=== PATIENT | male | born 1975 | race Caucasian/White ===

== ENCOUNTER 2021-07-08 13:15 | Inpatient (IN) | payer BC ==
[2021-07-08] MEDS ORDERED: IPRATROPIUM-ALBUTEROL 3 ML NEB INHALATION STA (13:27)
[2021-07-08] MEDS ORDERED: NITROGLYCERIN OINT 1 INCH/GM PACKET TOPICAL STA (13:27)
[2021-07-08] MEDS ORDERED: ASPIRIN 81 MG PO STA (13:34)
--- NOTE | 2021-07-08 13:40 | ED ---
SOB HPI - General Chief Complaint: Shortness of Breath Stated Complaint: Chest Pain Time Seen by Provider: 07/08/21 13:22 Source: patient Mode of arrival: ambulatory Limitations: no limitations - History of Present Illness Initial Comments: This 46-year-old male presents with a complaint of shortness of breath. This has been present for 3 days. The relates worsening with exertion. He states that he had some diffuse chest pain described as a pressure 2 days ago but none since. He denies any leg pain or swelling. He denies any previous similar ty pes of incidents. He denies any history of tobacco abuse, asthma, COPD, or emphysema. He denies any history of DVT or PE. He also denies any known cardiac disease previously. He has had a slight cough with phlegm-like production. There has been no fevers or chills. No other complaints or modif daja factors. He was sent over from his primary care office as a found his pulse ox to be 88%. - Related Data Home Medications Medication Instructions Recorded Confirmed Aspirin EC [Ecotrin] 650 mg PO QID PRN 07/08/21 07/08/21 Atenolol [Tenormin] 100 mg PO DAILY 07/08/21 07/08/21 Lisinopril [Prinivil] 10 mg PO DAILY 07/08/21 07/08/21 Allergies Allergy/AdvReac Type Severity Reaction Status Date / Time No Known Allergies Allergy Verified 07/08/21 15:20 Review of Systems ROS Statement: Those systems with pertinent positive or pertinent negative responses have been documented in the HPI. ROS Other: All systems not noted in ROS Statement are negative. Past Medical History Past Medical History: Hypertension History of Any Multi-Drug Resistant Organisms: None Reported Past Surgical History: No Surgical Hx Reported Smoking Status: Never smoker Past Alcohol Use History: None Reported Past Drug Use History: None Reported General Exam - General Exam Comments Initial Comments: GENERAL: The patient is well nourished and well hydrated. VITAL SIGNS: Heart rate, blood pressure, respiratory rate reviewed as recorded in nurse's notes. EYES: Pupils are round and reactive. Extraocular movements are intact. No conjunctival / lid redness or swelling. ENT: No external evidence of injury, swelling, or ecchymosis. Airway is patent. Throat is clear. NECK: Nontender. No swelling or evidence of injury. No subcutaneous emphysema. Trachea is midline. No thyroid mass. HEART: Regular rate and rhythm. Good peripheral pulses. LUNGS/CHEST: Breath sounds clear and equal bilaterally. No rales, rhonchi, or wheezes. No ecchymosis, subcutaneous emphysema, or tenderness. ABDOMEN: Abdomen soft without tenderness. No palpable masses or organomegaly. No peritoneal signs. No abdominal wall swelling or ecchymosis. EXTREMITIES: No extremity tenderness. Normal muscle tone and function. No thoracolumbar tenderness. NEUROLOGIC: Sensation is grossly intact. Cranial nerve exam reveals face is symmetrical, tongue is midline, speech is clear. SKIN: No abrasions or ecchymosis is noted. No induration or masses noted. PSYCHIATRIC: Alert and oriented. Appropriate behavior and judgment. Limitations: no limitations Course Vital Signs 07/08/21 07/08/21 07/08/21 13:17 13:23 13:30 Temperature 98.4 F Pulse Rate 77 71 Respiratory 20 19 Rate Blood Pressure 121/86 121/86 O2 Sat by Pulse 95 94 L Oximetry 07/08/21 07/08/21 07/08/21 13:50 14:00 14:02 Temperature Pulse Rate 75 82 84 Respiratory 19 Rate Blood Pressure 121/86 O2 Sat by Pulse 97 Oximetry 07/08/21 07/08/21 07/08/21 14:30 15:00 15:30 Temperature Pulse Rate 81 79 75 Respiratory 11 L 26 H 23 Rate Blood Pressure 120/92 132/103 116/89 O2 Sat by Pulse 94 L 94 L 95 Oximetry 07/08/21 16:00 Temperature Pulse Rate 79 Respiratory 16 Rate Blood Pressure 118/96 O2 Sat by Pulse 93 L Oximetry Medical Decision Making - Medical Decision Making The patient was seen and examined. All diagnostics were reviewed. The EKG shows a normal sinus rhythm at a rate of 74. There is multiple T-wave inversions through the precordial leads as well as 3 and aVF. There is no evidence of ST elevation. The ID intervals 138, QRS duration is 90, and the QTC intervals 497. He is given aspirin as well as Nitropaste. A DuoNeb breathing treatment is also given. Laboratory shows evidence of a decreased CO2. He also has elevation of his d-dimer and troponin. The patient had a CTA of his thorax and case is discussed with the radiologist shortly after completion and he does note a significant clot burden bilaterally consistent with pulmonary embolism. He notes that the clot burden is extensive and there is evidence of right ventricular strain. The case is discussed with Dr. Obregon from pulmonology and he recommends vascular surgery consultation for possible ECOS. Case is discussed with Dr. Camargo from vascular surgery and he will take patient to the heart catheterization lab for this procedure in the near future. The patient does note some slight improvement with the DuoNeb breathing treatment. Heparin is initiated as well. Pulmonology does evaluate patient in the emergency department. Case also was discussed with Dr. Sun from internal medicine who is agreeable with admission. Patient will be admitted to the intensive care unit. 40 minutes of critical care time is utilized and the treatment of the patient. l - Lab Data Result diagrams: 07/08/21 13:39 07/08/21 13:39 Lab Results 07/08/21 07/08/21 07/08/21 Range/Units 13:39 13:39 13:39 WBC 13.0 H (3.8-10.6) k/uL RBC 5.47 (4.30-5.90) m/uL Hgb 16.3 (13.0-17.5) gm/dL Hct 48.4 (39.0-53.0) % MCV 88.4 (80.0-100.0) fL MCH 29.7 (25.0-35.0) pg MCHC 33.7 (31.0-37.0) g/dL RDW 14.1 (11.5-15.5) % Plt Count 183 (150-450) k/uL MPV 7.8 Neutrophils % 74 % Lymphocytes % 17 % Monocytes % 6 % Eosinophils % 2 % Basophils % 1 % Neutrophils # 9.6 H (1.3-7.7) k/uL Lymphocytes # 2.2 (1.0-4.8) k/uL Monocytes # 0.8 (0-1.0) k/uL Eosinophils # 0.2 (0-0.7) k/uL Basophils # 0.1 (0-0.2) k/uL PT 10.8 (9.0-12.0) sec INR 1.0 (<1.2) APTT 23.5 (22.0-30.0) sec D-Dimer 7.28 H (<0.60) mg/L FEU Sodium 139 (137-145) mmol/L Potassium 4.9 (3.5-5.1) mmol/L Chloride 112 H (98-107) mmol/L Carbon Dioxide 16 L (22-30) mmol/L Anion Gap 11 mmol/L BUN 28 H (9-20) mg/dL Creatinine 0.94 (0.66-1.25) mg/dL Est GFR (CKD-EPI)AfAm >90 (>60 ml/min/1.73 sqM) Est GFR (CKD-EPI)NonAf >90 (>60 ml/min/1.73 sqM) Glucose 132 H (74-99) mg/dL Plasma Lactic Acid Riky (0.7-2.0) mmol/L Calcium 9.8 (8.4-10.2) mg/dL Magnesium 2.1 (1.6-2.3) mg/dL Total Bilirubin 0.6 (0.2-1.3) mg/dL AST 33 (17-59) U/L ALT 33 (4-49) U/L Alkaline Phosphatase 102 (38-126) U/L Troponin I (0.000-0.034) ng/mL NT-Pro-B Natriuret Pep pg/mL Total Protein 7.8 (6.3-8.2) g/dL Albumin 4.3 (3.5-5.0) g/dL Coronavirus (PCR) (Not Detectd) 07/08/21 07/08/21 07/08/21 Range/Units 13:39 13:39 13:39 WBC (3.8-10.6) k/uL RBC (4.30-5.90) m/uL Hgb (13.0-17.5) gm/dL Hct (39.0-53.0) % MCV (80.0-100.0) fL MCH (25.0-35.0) pg MCHC (31.0-37.0) g/dL RDW (11.5-15.5) % Plt Count (150-450) k/uL MPV Neutrophils % % Lymphocytes % % Monocytes % % Eosinophils % % Basophils % % Neutrophils # (1.3-7.7) k/uL Lymphocytes # (1.0-4.8) k/uL Monocytes # (0-1.0) k/uL Eosinophils # (0-0.7) k/uL Basophils # (0-0.2) k/uL PT (9.0-12.0) sec INR (<1.2) APTT (22.0-30.0) sec D-Dimer (<0.60) mg/L FEU Sodium (137-145) mmol/L Potassium (3.5-5.1) mmol/L Chloride (98-107) mmol/L Carbon Dioxide (22-30) mmol/L Anion Gap mmol/L BUN (9-20) mg/dL Creatinine (0.66-1.25) mg/dL Est GFR (CKD-EPI)AfAm (>60 ml/min/1.73 sqM) Est GFR (CKD-EPI)NonAf (>60 ml/min/1.73 sqM) Glucose (74-99) mg/dL Plasma Lactic Acid Riky 1.2 (0.7-2.0) mmol/L Calcium (8.4-10.2) mg/dL Magnesium (1.6-2.3) mg/dL Total Bilirubin (0.2-1.3) mg/dL AST (17-59) U/L ALT (4-49) U/L Alkaline Phosphatase (38-126) U/L Troponin I 0.054 H* (0.000-0.034) ng/mL NT-Pro-B Natriuret Pep 3960 pg/mL Total Protein (6.3-8.2) g/dL Albumin (3.5-5.0) g/dL Coronavirus (PCR) (Not Detectd) 07/08/21 Range/Units 13:39 WBC (3.8-10.6) k/uL RBC (4.30-5.90) m/uL Hgb (13.0-17.5) gm/dL Hct (39.0-53.0) % MCV (80.0-100.0) fL MCH (25.0-35.0) pg MCHC (31.0-37.0) g/dL RDW (11.5-15.5) % Plt Count (150-450) k/uL MPV Neutrophils % % Lymphocytes % % Monocytes % % Eosinophils % % Basophils % % Neutrophils # (1.3-7.7) k/uL Lymphocytes # (1.0-4.8) k/uL Monocytes # (0-1.0) k/uL Eosinophils # (0-0.7) k/uL Basophils # (0-0.2) k/uL PT (9.0-12.0) sec INR (<1.2) APTT (22.0-30.0) sec D-Dimer (<0.60) mg/L FEU Sodium (137-145) mmol/L Potassium (3.5-5.1) mmol/L Chloride (98-107) mmol/L Carbon Dioxide (22-30) mmol/L Anion Gap mmol/L BUN (9-20) mg/dL Creatinine (0.66-1.25) mg/dL Est GFR (CKD-EPI)AfAm (>60 ml/min/1.73 sqM) Est GFR (CKD-EPI)NonAf (>60 ml/min/1.73 sqM) Glucose (74-99) mg/dL Plasma Lactic Acid Riky (0.7-2.0) mmol/L Calcium (8.4-10.2) mg/dL Magnesium (1.6-2.3) mg/dL Total Bilirubin (0.2-1.3) mg/dL AST (17-59) U/L ALT (4-49) U/L Alkaline Phosphatase (38-126) U/L Troponin I (0.000-0.034) ng/mL NT-Pro-B Natriuret Pep pg/mL Total Protein (6.3-8.2) g/dL Albumin (3.5-5.0) g/dL Coronavirus (PCR) Not Detected (Not Detectd) Disposition Clinical Impression: Dyspnea on exertion, Acute respiratory failure, Acute electrocardiogram martinez es, Chest pain, Acute massive pulmonary embolism, Hypoxia Disposition: ADMITTED IP TO THIS HOSP Condition: Fair Is patient prescribed a controlled substance at d/c from ED?: No Time of Disposition: 15:30 Decision Date: 07/08/21 Decision Time: 15:30
[2021-07-08 13:52] LABS: Basophils # (A) 0.1 k/uL (0-0.2); Basophils % (A) 1 %; Eosinophils # (A) 0.2 k/uL (0-0.7); Eosinophils % (A) 2 %; HCT 48.4 % (39.0-53.0); HGB 16.3 gm/dL (13.0-17.5); Lymphocytes # (A) 2.2 k/uL (1.0-4.8); Lymphocytes % (A) 17 %; MCH 29.7 pg (25.0-35.0); MCHC 33.7 g/dL (31.0-37.0); MCV 88.4 fL (80.0-100.0); Mean Platelet Volume 7.8; Monocytes # (A) 0.8 k/uL (0-1.0); Monocytes % (A) 6 %; Neutrophils # (A) 9.6 k/uL (1.3-7.7); Neutrophils % (A) 74 %; Platelet Count 183 k/uL (150-450); RBC 5.47 m/uL (4.30-5.90); RDW 14.1 % (11.5-15.5)
[2021-07-08 14:08] LABS: ALT 33 U/L (4-49); AST 33 U/L (17-59); African American GFR (CKD) >90 (>60 ml/min/1.73 sqM); Albumin 4.3 g/dL (3.5-5.0); Alkaline Phosphatase 102 U/L (38-126); Anion Gap 11 mmol/L; Blood Urea Nitrogen 28 mg/dL (9-20); Calcium 9.8 mg/dL (8.4-10.2); Carbon Dioxide 16 mmol/L (22-30); Chloride 112 mmol/L (98-107); Glucose 132 mg/dL (74-99); Magnesium 2.1 mg/dL (1.6-2.3); Non-African American GFR(CKD) >90 (>60 ml/min/1.73 sqM); Potassium 4.9 mmol/L (3.5-5.1); Sodium 139 mmol/L (137-145); Total Bilirubin 0.6 mg/dL (0.2-1.3); Total Protein 7.8 g/dL (6.3-8.2)
[2021-07-08 14:16] LABS: Partial Thromboplastin Time 23.5 sec (22.0-30.0); Prothrombin Time 10.8 sec (9.0-12.0)
--- NOTE | 2021-07-08 14:31 | XR ---
EXAMINATION TYPE: XR chest 2V DATE OF EXAM: 07/08/2021 COMPARISON: NONE TECHNIQUE: PA and lateral views submitted. HISTORY: Difficulty breathing FINDINGS: The lungs are clear and there is no pneumothorax, pleural effusion, or focal pneumonia. Arthropathy of the shoulders. Heart size normal. Chronic rib deformities are seen and there is hypertrophic and degenerative change of the spine. IMPRESSION: 1. No acute process.
[2021-07-08] MEDS ORDERED: HEPARIN SODIUM 1,000 UN/ML (10ML VL) IV PRN (14:51)
[2021-07-08] MEDS ORDERED: HEPARIN SODIUM 1,000 UN/ML (10ML VL) IV ONE (14:51)
--- NOTE | 2021-07-08 14:55 | CT ---
EXAMINATION TYPE: CT angio chest DATE OF EXAM: 07/08/2021 2:43 PM COMPARISON: None HISTORY: PE suspected, intermediate probability, positive d-dimer CT DLP: 672.9 mGycm Automated exposure control for dose reduction was used. CONTRAST: CTA scan of the thorax is performed with IV Contrast, patient injected with 100 mL of Isovue 370, pul monary embolism protocol. . FINDINGS: LUNGS: Vague groundglass changes in the left upper lobe are incidentally noted. Could been the basis of a pneumonitis or possibly developing pulmonary infarction. No sizable pleural effusion or pneumoth orax. MEDIASTINUM: There large burden acute pulmonary embolism involving the main right and left pulmonary arteries extending into the secondary and distal branches compatible with a large burden PE. The righ t ventricular 2 left ventricular ratio is greater than 1 compatible right ventricular strain. Case di scussed by telephone at 2:46 PM with the ER physician 07/08/2021. OTHER: Hypertrophic and degenerative change of the spine IMPRESSION: 1. Large burden acute bilateral pulmonary embolism involving the right and left mainstem branches ext ending into the secondary and distal branches. Correlate for right ventricular strain. 2. Small focal groundglass area in the left upper lobe medially superior segment may represent an are a of pneumonitis or developing pulmonary infarction.
[2021-07-08] MEDS: HEPARIN SOD,PORK IN 0.45% NACL 25,000 UNIT in 0.45% NACL 1 250ML.BAG IV SCH (15:10)
[2021-07-08] MEDS ORDERED: IOPAMIDOL-370 50ML BTL INJ ONE (15:30)
[2021-07-08] MEDS ORDERED: NALOXONE 0.4 MG/ML 1 ML VIAL IV PRN (15:31)
[2021-07-08] MEDS ORDERED: MORPHINE SULFATE 2 MG/ML SYRINGE IV PRN (15:31)
[2021-07-08] MEDS ORDERED: IPRATROPIUM-ALBUTEROL 3 ML NEB INHALATION PRN (15:31)
[2021-07-08] MEDS ORDERED: ACETAMINOPHEN TAB 325 MG TAB PO PRN (15:31)
[2021-07-08] MEDS ORDERED: ASPIRIN 325 MG TAB PO PRN (15:35)
--- NOTE | 2021-07-08 15:48 | P.CNPUL ---
History of Present Illness Consult date: 07/08/21 Requesting physician: Jamar Loera Reason for consult: dyspnea, chest pain, abnormal CXR/CT Chief complaint: Shortness of breath, chest pain History of present illness: This is a very pleasant 46-year-old male patient who follows with Dr. Wooten as his primary care provider. He has a history of hypertension. Lifelong nonsmoker. No other significant medical problems. He had presented to his PCP today with complaints of chest discomfort and shortness of breath. He was found to have O2 saturation of 88% and was referred here to the emergency room. His symptoms started 4 days ago and progressively got worse that he sought treatment today. They work revealed use BC of 13.0. Hemoglobin 13.6. D-dimer 7.28. Sodium 139. Potassium 4.9. Bicarb 16. Creatinine 0.94. Troponin 0.054. ProBNP 3960. Sebastian virus not detected. Chest x-ray revealed no acute pulmonary process. CT angiogram revealed a large burden acute bilateral pulmonary embolism involving the right and left mainstem branches extending into the second and distal branches. Correlate for right ventricular strain. There is some small focal groundglass opacity in the left upper lobe medial represent an area of suspected pulmonary infarction. He is seen in the emergency room. He is currently sitting up on the stretcher. Awake and alert in no acute distress. Maintaining O2 saturations in the mid 90s on room air. He denies any lower extremity pain or edema. He's been hemodynamically stable. He's been initiated on a heparin drip. 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 Review of Systems REVIEW OF SYSTEMS: CONSTITUTIONAL: Denies any recent significant weight loss or weight gain. EYES: Denies change in vision. EARS, NOSE, MOUTH, THROAT: Denies headaches, denies sore throat. CARDIOVASCULAR: Positive for chest pain, no palpitations or syncopal episodes. RESPIRATORY: Positive for shortness of breath, no cough, congestion or hemoptysis. GASTROINTESTINAL: Denies change in appetite, denies abdominal pain GENITOURINARY: Denies hematuria, denies infections. MUSKULOSKELETAL: Denies pain, denies swelling. INTEGUMENTARY: Denies rash, denies eczema. NEUROLOGICAL: Denies recent memory loss, no recent seizure activity. PSYCHIATRIC: Denies anxiety, denies depression. HEMATOLOGIC/LYMPHATIC: Denies anemia, denies enlarged lymph nodes. Past Medical History Past Medical History: Hypertension History of Any Multi-Drug Resistant Organisms: None Reported Past Surgical History: No Surgical Hx Reported Smoking Status: Never smoker Past Alcohol Use History: None Reported Past Drug Use History: None Reported Medications and Allergies Home Medications Medication Instructions Recorded Confirmed Type Aspirin EC [Ecotrin] 650 mg PO QID PRN 07/08/21 07/08/21 History Atenolol [Tenormin] 100 mg PO DAILY 07/08/21 07/08/21 History Lisinopril [Prinivil] 10 mg PO DAILY 07/08/21 07/08/21 History Allergies Allergy/AdvReac Type Severity Reaction Status Date / Time No Known Allergies Allergy Verified 07/08/21 15:20 Physical Exam Vitals: Vital Signs Temp Pulse Resp BP Pulse Ox 07/08/21 14:02 84 07/08/21 13:50 75 07/08/21 13:23 77 20 121/86 95 07/08/21 13:17 98.4 F Intake and Output 07/08/21 07/08/21 07/08/21 06:59 14:59 22:59 Other: Weight 113.398 kg GENERAL EXAM: Alert, very pleasant 46-year-old gentleman, on 2 L nasal cannula, comfortable in no apparent distress. HEAD: Normocephalic. EYES: Normal reaction of pupils, equal size. NOSE: Clear with pink turbinates. THROAT: No erythema or exudates. NECK: No masses, no JVD. CHEST: No chest wall deformity. LUNGS: Equal air entry with no crackles, wheeze, rhonchi or dullness. CVS: S1 and S2 normal with no audible murmur, regular rhythm. ABDOMEN: No hepatosplenomegaly, normal bowel sounds, no guarding or rigidity. SPINE: No scoliosis or deformity SKIN: No rashes CENTRAL NERVOUS SYSTEM: No focal deficits, tone is normal in all 4 extremities. EXTREMITIES: There is no peripheral edema. No clubbing, no cyanosis. Peripheral pulses are intact. Results - Laboratory Findings CBC and BMP: 07/08/21 13:39 07/08/21 13:39 PT/INR, D-dimer PT 10.8 sec (9.0-12.0) 07/08/21 13:39 INR 1.0 (<1.2) 07/08/21 13:39 D-Dimer 7.28 mg/L FEU (<0.60) H 07/08/21 13:39 Abnormal lab findings: Abnormal Labs 07/08/21 07/08/21 07/08/21 13:39 13:39 13:39 WBC 13.0 H Neutrophils # 9.6 H D-Dimer 7.28 H Chloride 112 H Carbon Dioxide 16 L BUN 28 H Glucose 132 H Troponin I 07/08/21 13:39 WBC Neutrophils # D-Dimer Chloride Carbon Dioxide BUN Glucose Troponin I 0.054 H* - Diagnostic Findings Chest x-ray: image reviewed CT scan - chest: image reviewed Assessment and Plan Assessment: 1 Acute hypoxemic respiratory failure and chest pain secondary to large burden acute bilateral pulmonary embolism involving the right and left mainstem branches extending is secondary and distal branches. Noted right ventricular strain. 2 Troponin leak secondary to above 3 History of hypertension Plan: The patient was seen and evaluated by Dr. Obregon Chest x-ray, CAT scan and labs reviewed Vascular surgery notified for possible EKOS Heparin drip initiated Echocardiogram and Doppler of lower extremities ordered To be admitted to the intensive care unit for close monitoring We will continue to follow and make further recommendations based on his clinical status I, the cosigning physician, performed a history & physical examination of the patient. Lungs sounds are clear. Maintaining good O2 saturations in the 90s on 2 L/m per nasal. I discussed the assessment and plan of care with my nurse practitioner, Yaneth Hammond. I attest to the above consultation as dictated by her. Time with Patient: Greater than 30
--- NOTE | 2021-07-08 16:12 | P.HPIM ---
History of Present Illness Patient was an 46-year-old male came in with compensative shortness of breath seen in PCPs office found to be severely hypoxic at 88% was sent to the hospital. Patient was also company of pleuritic chest pain because of which d-dimer was obtained which was elevated because of which patient had a CT angios the chest which showed large pulmonary embolus involving the right and left the mainstem branches . Patient did have troponin elevation which was minimal and is 0.054 minimally elevated BNP. Patient is bit acidotic without any anion gap and hyperchloremia. Pulmonology was consulted who already valid to the patient and ask for surgery was consulted as well and patient will undergo intralesional thrombolytic therapy, ECOS procedure. Patient denied any family history of pulmonary embolism, patient denied any personal history of clotting disorders, patient denied any significant unintentional weight loss. 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 REVIEW OF SYSTEMS: CONSTITUTIONAL: No fever, no malaise, no fatigue. HEENT: No recent visual problems or hearing problems. Denied any sore throat. CARDIOVASCULAR: No chest pain, orthopnea, PND, no palpitations, no syncope. PULMONARY: No shortness of breath, no cough, no hemoptysis. GASTROINTESTINAL: No diarrhea, no nausea, no vomiting, no abdominal pain. NEUROLOGICAL: No headaches, no weakness, no numbness. HEMATOLOGICAL: Denies any bleeding or petechiae. GENITOURINARY: Denies any burning micturition, frequency, or urgency. MUSCULOSKELETAL/RHEUMATOLOGICAL: Denies any joint pain, swelling, or any muscle pain. ENDOCRINE: Denies any polyuria or polydipsia. The rest of the 14-point review of systems is negative. PHYSICAL EXAMINATION: GENERAL: The patient is alert and oriented x3, not in any acute distress. Well developed, well nourished. HEENT: Pupils are round and equally reacting to light. EOMI. No scleral icterus. No conjunctival pallor. Normocephalic, atraumatic. No pharyngeal erythema. No thyromegaly. CARDIOVASCULAR: S1 and S2 present. No murmurs, rubs, or gallops. PULMONARY: Chest is clear to auscultation, no wheezing or crackles. ABDOMEN: Soft, nontender, nondistended, normoactive bowel sounds. No palpable organomegaly. MUSCULOSKELETAL: No joint swelling or deformity. EXTREMITIES: No cyanosis, clubbing, or pedal edema. NEUROLOGICAL: Gross neurological examination did not reveal any focal deficits. SKIN: No rashes. Assessment and plan -Acute hypoxic respiratory failure seconded pulmonary embolism: Patient will undergo intralesional, lytic therapy, patient appears to have left radical strain, echo Will be obtained -Elevated troponin: Secondary to pulmonary embolism -Noniron gap metabolic acidosis secondary to hyperchloremia -Leukocytosis: Reactive secondary to pulmonary embolism Past Medical History Past Medical History: Hypertension History of Any Multi-Drug Resistant Organisms: None Reported Past Surgical History: No Surgical Hx Reported Smoking Status: Never smoker Past Alcohol Use History: None Reported Past Drug Use History: None Reported Medications and Allergies Home Medications Medication Instructions Recorded Confirmed Type Aspirin EC [Ecotrin] 650 mg PO QID PRN 07/08/21 07/08/21 History Atenolol [Tenormin] 100 mg PO DAILY 07/08/21 07/08/21 History Lisinopril [Prinivil] 10 mg PO DAILY 07/08/21 07/08/21 History Allergies Allergy/AdvReac Type Severity Reaction Status Date / Time No Known Allergies Allergy Verified 07/08/21 15:20 Physical Exam Vitals: Vital Signs Temp Pulse Resp BP Pulse Ox 07/08/21 15:30 75 23 116/89 95 07/08/21 15:00 79 26 H 132/103 94 L 07/08/21 14:30 81 11 L 120/92 94 L 07/08/21 14:02 84 07/08/21 14:00 82 19 121/86 97 07/08/21 13:50 75 07/08/21 13:30 71 19 121/86 94 L 07/08/21 13:23 77 20 121/86 95 07/08/21 13:17 98.4 F Intake and Output 07/08/21 07/08/21 07/08/21 06:59 14:59 22:59 Other: Weight 113.398 kg Results CBC & Chem 7: 07/08/21 13:39 07/08/21 13:39 Labs: Abnormal Lab Results - Last 24 Hours (Table) 07/08/21 07/08/21 07/08/21 Range/Units 13:39 13:39 13:39 WBC 13.0 H (3.8-10.6) k/uL Neutrophils # 9.6 H (1.3-7.7) k/uL D-Dimer 7.28 H (<0.60) mg/L FEU Chloride 112 H (98-107) mmol/L Carbon Dioxide 16 L (22-30) mmol/L BUN 28 H (9-20) mg/dL Glucose 132 H (74-99) mg/dL Troponin I (0.000-0.034) ng/mL 07/08/21 Range/Units 13:39 WBC (3.8-10.6) k/uL Neutrophils # (1.3-7.7) k/uL D-Dimer (<0.60) mg/L FEU Chloride (98-107) mmol/L Carbon Dioxide (22-30) mmol/L BUN (9-20) mg/dL Glucose (74-99) mg/dL Troponin I 0.054 H* (0.000-0.034) ng/mL
[2021-07-08] MEDS ORDERED: ALTEPLASE 10 MG in SODIUM CHLORIDE 0.9% 100 ML IV ONE (16:25)
[2021-07-08] MEDS ORDERED: SODIUM CHLORIDE 0.9% 1,000 ML IV SCH ×2 (16:30)
[2021-07-08] MEDS ORDERED: HEPARIN SOD,PORK IN 0.45% NACL 25,000 UNIT in 0.45% NACL 1 250ML.BAG IV SCH ×2 (16:30)
[2021-07-08] MEDS ORDERED: ALTEPLASE 2 MG VIAL (CATHFLO) IV STA ×2 (16:47→16:48)
[2021-07-08] MEDS: ALTEPLASE 10 MG in SODIUM CHLORIDE 0.9% 100 ML IV ONE ×2 (17:35→22:14)
[2021-07-08] MEDS ORDERED: IV FLUID CONTINUATION 1,000 ML IV ONE (17:39)
--- NOTE | 2021-07-08 17:41 | P.OP ---
Date of Procedure: 07/08/21 Preoperative Diagnosis: #1: Submassive pulmonary embolism with evidence of right heart strain on computed tomography scan and elevation of troponin levels Postoperative Diagnosis: Same. Procedure(s) Performed: #1: Ultrasound-guided cannulation of the right common femoral vein x 2. #2: Placement of separate EKOS catheter into the left and right pulmonary arteries. #3: Initiation of TPA thrombo-lysis. Implants: none. Anesthesia: local Surgeon: Ajay Jimenez Estimated Blood Loss (ml): 2 Urine output (ml): 0 Pathology: none sent Condition: stable Disposition: ICU Indications for Procedure: patient is a 46-year-old male who presented to the emergency room after being evaluated in his primary care physician's office with a complaint of shortness of breath. During workup the patient did undergo CT with pulmonary embolism protocol demonstrating submassive pulmonary embolism with evidence of right heart strain with bowing of the intraventricular septum and elevation of troponin levels. Because the above findings the patient was offered a TPA thrombolysis. The procedure, risk and benefits were discussed with the patient. Patient wished to proceed. Description of Procedure: Patient is brought to the cardiac catheterization suite where both left and right groins were sterilely prepped and draped in the usual manner. Utilizing ultrasound the right common femoral vein was identified and found to be normally compressible and free of visible thrombus. 1% Xylocaine was utilized for local anesthesia tissues overlying this vein. Through this anesthetized area a multipurpose needle was utilized cannulate the vein was cannulated aSoftip guidewire was advanced into the vein. The needle was withdrawn and a 6-Barbadian sheath was placed. This was repeated for placement of a second sheath. Utilizing guidewire and angled glide catheter combination the right pulmonary artery was cannulated. Guidewire was removed and replaced with a stiffer wire through the glide catheter. Once guidewire was in proper position the glide catheter was withdrawn and an EKOS was advanced over the guidewire. Once in position guidewire was withdrawn, 2 mg of TPA was infused after the vibrating component of the catheter was positioned. The sheath was secured to the skin with silk suture. A similar procedure was performed on the contralateral side. Appropriate dressings were applied. Patient tolerated the procedure well and was taken to the intensive care unit in stable condition.
--- NOTE | 2021-07-08 17:45 | P.GSCN ---
History of Present Illness Consult date: 07/08/21 Reason for Consult: Pulmonary embolism with evidence of right heart strain History of present illness: Patient is a 46-year-old male who presented earlier today to his primary care physician's complaining of shortness of breath. Patient was eventually evaluated in the emergency room where CT of the chest was performed with pulmonary embolism protocol which demonstrated some massive bilateral pulmonary emboli. Vascular surgical consultation was requested regarding possible TPA thrombolysis. Review of Systems All systems: negative Past Medical History Past Medical History: Hyperlipidemia, Hypertension History of Any Multi-Drug Resistant Organisms: None Reported Past Surgical History: No Surgical Hx Reported Smoking Status: Never smoker Past Alcohol Use History: None Reported Past Drug Use History: None Reported Medications and Allergies Home Medications Medication Instructions Recorded Confirmed Type Aspirin EC [Ecotrin] 650 mg PO QID PRN 07/08/21 07/08/21 History Atenolol [Tenormin] 100 mg PO DAILY 07/08/21 07/08/21 History Lisinopril [Prinivil] 10 mg PO DAILY 07/08/21 07/08/21 History Allergies Allergy/AdvReac Type Severity Reaction Status Date / Time No Known Allergies Allergy Verified 07/08/21 15:20 Surgical - Exam Osteopathic Statement: *. No significant issues noted on an osteopathic structural exam other than those noted in the History and Physical/Consult. Vital Signs Temp 98.4 F 07/08/21 13:17 Results - Labs 07/08/21 13:39 07/08/21 13:39 Abnormal Lab Results - Last 24 Hours (Table) 07/08/21 07/08/21 07/08/21 Range/Units 13:39 13:39 13:39 WBC 13.0 H (3.8-10.6) k/uL Neutrophils # 9.6 H (1.3-7.7) k/uL D-Dimer 7.28 H (<0.60) mg/L FEU Chloride 112 H (98-107) mmol/L Carbon Dioxide 16 L (22-30) mmol/L BUN 28 H (9-20) mg/dL Glucose 132 H (74-99) mg/dL Troponin I (0.000-0.034) ng/mL 07/08/21 Range/Units 13:39 WBC (3.8-10.6) k/uL Neutrophils # (1.3-7.7) k/uL D-Dimer (<0.60) mg/L FEU Chloride (98-107) mmol/L Carbon Dioxide (22-30) mmol/L BUN (9-20) mg/dL Glucose (74-99) mg/dL Troponin I 0.054 H* (0.000-0.034) ng/mL Diabetes panel 07/08/21 Range/Units 13:39 Sodium 139 (137-145) mmol/L Potassium 4.9 (3.5-5.1) mmol/L Chloride 112 H (98-107) mmol/L Carbon Dioxide 16 L (22-30) mmol/L BUN 28 H (9-20) mg/dL Creatinine 0.94 (0.66-1.25) mg/dL Glucose 132 H (74-99) mg/dL Calcium 9.8 (8.4-10.2) mg/dL AST 33 (17-59) U/L ALT 33 (4-49) U/L Alkaline Phosphatase 102 (38-126) U/L Total Protein 7.8 (6.3-8.2) g/dL Albumin 4.3 (3.5-5.0) g/dL Calcium panel 07/08/21 Range/Units 13:39 Calcium 9.8 (8.4-10.2) mg/dL Albumin 4.3 (3.5-5.0) g/dL Pituitary panel 07/08/21 Range/Units 13:39 Sodium 139 (137-145) mmol/L Potassium 4.9 (3.5-5.1) mmol/L Chloride 112 H (98-107) mmol/L Carbon Dioxide 16 L (22-30) mmol/L BUN 28 H (9-20) mg/dL Creatinine 0.94 (0.66-1.25) mg/dL Glucose 132 H (74-99) mg/dL Calcium 9.8 (8.4-10.2) mg/dL Adrenal panel 07/08/21 Range/Units 13:39 Sodium 139 (137-145) mmol/L Potassium 4.9 (3.5-5.1) mmol/L Chloride 112 H (98-107) mmol/L Carbon Dioxide 16 L (22-30) mmol/L BUN 28 H (9-20) mg/dL Creatinine 0.94 (0.66-1.25) mg/dL Glucose 132 H (74-99) mg/dL Calcium 9.8 (8.4-10.2) mg/dL Total Bilirubin 0.6 (0.2-1.3) mg/dL AST 33 (17-59) U/L ALT 33 (4-49) U/L Alkaline Phosphatase 102 (38-126) U/L Total Protein 7.8 (6.3-8.2) g/dL Albumin 4.3 (3.5-5.0) g/dL Assessment and Plan Assessment: submassive bilateral pulmonary emboli with evidence of right heart strain P Plan: We will proceed with TPA thrombo-lysis utilizing the EKOS catheter. The procedure, risk and benefits were discussed with the patient. All questions were answered to patient's satisfaction. Time with Patient: Less than 30 (patient was evaluated in the emergency room.)
[2021-07-08] MEDS ORDERED: LORazepam 2 MG/ML INJ IV PRN (17:58)
[2021-07-08] MEDS ORDERED: ONDANSETRON 4 MG/2 ML VIAL IVP PRN (17:58)
[2021-07-08] MEDS ORDERED: HYDROcodone/APAP 5-325MG 1 EACH TAB PO PRN (17:58)
[2021-07-08 18:01] LABS: Glucose,Whole Blood 119 mg/dL (75-99)
[2021-07-08] MEDS: PANTOPRAZOLE 40 MG/10 ML VIAL IV SCH (18:11)
[2021-07-08] MEDS: SODIUM CHLORIDE 0.9% 1,000 ML IV SCH ×2 (18:12)
[2021-07-09 07:40] LABS: Basophils # (A) 0.1 k/uL (0-0.2); Basophils % (A) 1 %; Eosinophils # (A) 0.3 k/uL (0-0.7); Eosinophils % (A) 3 %; HCT 45.7 % (39.0-53.0); HGB 15.3 gm/dL (13.0-17.5); Lymphocytes # (A) 1.7 k/uL (1.0-4.8); Lymphocytes % (A) 16 %; MCH 30.1 pg (25.0-35.0); MCHC 33.4 g/dL (31.0-37.0); MCV 90.1 fL (80.0-100.0); Mean Platelet Volume 7.9; Monocytes # (A) 0.7 k/uL (0-1.0); Monocytes % (A) 7 %; Neutrophils # (A) 7.8 k/uL (1.3-7.7); Neutrophils % (A) 73 %; Platelet Count 136 k/uL (150-450); RBC 5.08 m/uL (4.30-5.90); RDW 14.4 % (11.5-15.5); WBC 10.7 k/uL (3.8-10.6)
[2021-07-09 07:59] LABS: African American GFR (CKD) >90 (>60 ml/min/1.73 sqM); Anion Gap 8 mmol/L; Blood Urea Nitrogen 26 mg/dL (9-20); Calcium 8.9 mg/dL (8.4-10.2); Carbon Dioxide 21 mmol/L (22-30); Chloride 111 mmol/L (98-107); Glucose 125 mg/dL (74-99); Magnesium 2.1 mg/dL (1.6-2.3); Non-African American GFR(CKD) >90 (>60 ml/min/1.73 sqM); Potassium 4.5 mmol/L (3.5-5.1); Sodium 140 mmol/L (137-145)
--- NOTE | 2021-07-09 08:45 | US ---
EXAMINATION TYPE: US venous doppler duplex LE DATE OF EXAM: 07/09/2021 8:37 AM COMPARISON: NONE CLINICAL HISTORY: PE. PE SIDE PERFORMED: Bilateral TECHNIQUE: The lower extremity deep venous system is examined utilizing real time linear array sonog randy with graded compression, doppler sonography and color-flow sonography. VESSELS IMAGED: Common Femoral Vein Deep Femoral Vein Greater Saphenous Vein * Femoral Vein Popliteal Vein Small Saphenous Vein * Proximal Calf Veins (* superficial vessels) Right Leg: Positive for DVT, distal femoral vein to proximal calf veins/ Right groin unable to be im aged due to arterial line within right groin Left Leg: Negative for DVT IMPRESSION: 1. Deep venous thrombosis within the right lower extremity proximal calf veins extending into the dis agnieszka femoral vein. 2. Left lower extremity ultrasound negative for deep venous thrombosis.
[2021-07-09] MEDS ORDERED: atenoloL 50 MG TAB PO SCH (09:00)
[2021-07-09] MEDS ORDERED: lisinopriL 10 MG TAB PO SCH (09:00)
--- NOTE | 2021-07-09 10:15 | P.PN ---
Subjective Progress Note Date: 07/09/21 Principal diagnosis: Acute bilateral pulmonary emboli This is a very pleasant 46-year-old male patient who follows with Dr. Wooten as his primary care provider. He has a history of hypertension. Lifelong nonsmoker. No other significant medical problems. He had presented to his PCP today with complaints of chest discomfort and shortness of breath. He was found to have O2 saturation of 88% and was referred here to the emergency room. His symptoms started 4 days ago and progressively got worse that he sought treatment today. They work revealed use BC of 13.0. Hemoglobin 13.6. D-dimer 7.28. Sodium 139. Potassium 4.9. Bicarb 16. Creatinine 0.94. Troponin 0.054. ProBNP 3960. Seabstian virus not detected. Chest x-ray revealed no acute pulmonary process. CT angiogram revealed a large burden acute bilateral pulmonary embolism involving the right and left mainstem branches extending into the second and distal branches. Correlate for right ventricular strain. There is some small focal groundglass opacity in the left upper lobe medial represent an area of suspected pulmonary infarction. He is seen in the emergency room. He is currently sitting up on the stretcher. Awake and alert in no acute distress. Maintaining O2 saturations in the mid 90s on room air. He denies any lower extremity pain or edema. He's been hemodynamically stable. He's been in itiated on a heparin drip. 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 The patient is seen today 07/09/2021 in follow-up in the intensive care unit. He is currently awake and alert in no acute distress. No worsening shortness of breath, cough or congestion. No hemoptysis. He is maintaining good O2 saturations in the 90s on 3 L/m per nasal cannula. 0.9 normal saline at KVO. His today he did undergo an EKOS procedure with placement of a EKOS catheters into the left and right pulmonary arteries. He was initiated on tPA which is cu rrently still running. Doppler today is positive for a right lower extremity DVT. He remains on heparin drip. White count 10.7. Hemoglobin 15.3. Fibrinogen 271. Sodium 140. Potassium 4.5. Bicarb 21. Creatinine 0.89. Glucose 125. Objective - Vital Signs Vital signs: Vital Signs Temp 98.5 F 08/13/21 04:00 Pulse 67 07/09/21 06:00 Resp 24 07/09/21 06:00 BP 133/88 07/09/21 06:00 Pulse Ox 96 07/09/21 06:00 Intake & Output 07/08/21 07/09/21 07/09/21 18:59 06:59 18:59 Intake Total 170 70 Output Total 0 580 Balance 170 -510 Weight 113.398 kg 113.6 kg Intake: IV 100 Intake, IV Titration 70 70 Amount Sodium Chloride 0.9% 1, 35 35 000 ml @ 35 mls/hr IV . Q24H [facility] Rx#:[id number] Sodium Chloride 0.9% 1, 35 35 000 ml @ 35 mls/hr IV . Q24H [facility] Rx#:[id number] Oral 0 Output: Urine 0 580 Other: Voiding Method Urinal Urinal # Voids 0 0 - Exam GENERAL EXAM: Alert, pleasant 46-year-old gentleman, on 3 L nasal cannula, comfortable in no apparent distress. HEAD: Normocephalic. EYES: Normal reaction of pupils, equal size. NOSE: Clear with pink turbinates. THROAT: No erythema or exudates. NECK: No masses, no JVD. CHEST: No chest wall deformity. LUNGS: Equal air entry with no crackles, wheeze, rhonchi or dullness. CVS: S1 and S2 normal with no audible murmur, regular rhythm. ABDOMEN: No hepatosplenomegaly, normal bowel sounds, no guarding or rigidity. SPINE: No scoliosis or deformity SKIN: No rashes CENTRAL NERVOUS SYSTEM: No focal deficits, tone is normal in all 4 extremities. EXTREMITIES: EKOS catheters to the bilateral femoral veins. There is no peripheral edema. No clubbing, no cyanosis. Peripheral pulses are intact. - Labs CBC & Chem 7: 07/09/21 06:51 07/09/21 06:51 Labs: Abnormal Lab Results - Last 24 Hours (Table) 07/08/21 07/08/21 07/08/21 Range/Units 13:39 13:39 13:39 WBC 13.0 H (3.8-10.6) k/uL Plt Count (150-450) k/uL Neutrophils # 9.6 H (1.3-7.7) k/uL D-Dimer 7.28 H (<0.60) mg/L FEU Chloride 112 H (98-107) mmol/L Carbon Dioxide 16 L (22-30) mmol/L BUN 28 H (9-20) mg/dL Glucose 132 H (74-99) mg/dL POC Glucose (mg/dL) (75-99) mg/dL Troponin I (0.000-0.034) ng/mL 07/08/21 07/08/21 07/09/21 Range/Units 13:39 17:59 06:51 WBC 10.7 H (3.8-10.6) k/uL Plt Count 136 L (150-450) k/uL Neutrophils # 7.8 H (1.3-7.7) k/uL D-Dimer (<0.60) mg/L FEU Chloride (98-107) mmol/L Carbon Dioxide (22-30) mmol/L BUN (9-20) mg/dL Glucose (74-99) mg/dL POC Glucose (mg/dL) 119 H (75-99) mg/dL Troponin I 0.054 H* (0.000-0.034) ng/mL 07/09/21 Range/Units 06:51 WBC (3.8-10.6) k/uL Plt Count (150-450) k/uL Neutrophils # (1.3-7.7) k/uL D-Dimer (<0.60) mg/L FEU Chloride 111 H (98-107) mmol/L Carbon Dioxide 21 L (22-30) mmol/L BUN 26 H (9-20) mg/dL Glucose 125 H (74-99) mg/dL POC Glucose (mg/dL) (75-99) mg/dL Troponin I (0.000-0.034) ng/mL Assessment and Plan Assessment: 1 Acute hypoxemic respiratory failure and chest pain secondary to large burden acute bilateral pulmonary embolism involving the right and left mainstem branches extending is secondary and distal branches. Noted right ventricular strain. Status post EKOS procedure on 07/08/2021 with bilateral catheter placement to the right and left pulmonary arteries. TPA infusing. Remains on heparin drip. 2 Right lower extremity DVT 3 Troponin leak secondary to above 4 History of hypertension Plan: The patient was seen and evaluated by Dr. Obregon Currently receiving TPA through EKOS catheters bilaterally Heparin drip continues Echocardiogram pending Titrate the FiO2 as tolerated We will continue to follow I, the cosigning physician, performed a history & physical examination of the patient. Lungs sounds are clear. Maintaining good O2 saturations in the 90s on 3 L/m per nasal canula. I discussed the assessment and plan of care with my nurse practitioner, Yaneth Hammond. I attest to the above note as dictated by her.
[2021-07-09] MEDS: PANTOPRAZOLE 40 MG/10 ML VIAL IV SCH (10:22)
[2021-07-09] MEDS ORDERED: APIXABAN 5 MG TAB PO SCH (10:30)
--- NOTE | 2021-07-09 11:01 | P.PN ---
Subjective Progress Note Date: 07/09/21 Principal diagnosis: Submassive pulmonary embolism She was seen and examined in the ICU. No acute changes through the night. He is status post EKOS for submassive pulmonary embolism. He tolerated the procedure well. No signs or symptoms of any bleeding. Vital signs and labs stable. Objective - Vital Signs Vital signs: Vital Signs Temp 98.5 F 07/09/21 04:00 Pulse 67 07/09/21 06:00 Resp 24 07/09/21 06:00 BP 133/88 07/09/21 06:00 Pulse Ox 96 07/09/21 06:00 Intake & Output 07/08/21 07/09/21 07/09/21 18:59 06:59 18:59 Intake Total 170 70 Output Total 0 580 Balance 170 -510 Weight 113.398 kg 113.6 kg Intake: IV 100 Intake, IV Titration 70 70 Amount Sodium Chloride 0.9% 1, 35 35 000 ml @ 35 mls/hr IV . Q24H [facility] Rx#:[id number] Sodium Chloride 0.9% 1, 35 35 000 ml @ 35 mls/hr IV . Q24H [facility] Rx#:[id number] Oral 0 Output: Urine 0 580 Other: Voiding Method Urinal Urinal # Voids 0 0 - Exam General appearance: The patient is alert, oriented, in no acute distress. HET: Head is normocephalic and atraumatic. Neck: Supple without lymphadenopathy. Trachea midline. Heart: S1 S2. Regular rate and rhythm. Lungs: Clear to auscultation. Abdomen: Soft, nontender, nondistended. Extremities: Normal skin color and turgor. Right groin with catheters intact, no hematoma. Catheters removed per Dr. Bartholomew. Neurological: No focal deficits. Strength and sensation are grossly intact. - Labs CBC & Chem 7: 07/09/21 06:51 07/09/21 06:51 Labs: Abnormal Lab Results - Last 24 Hours (Table) 07/08/21 07/08/21 07/08/21 Range/Units 13:39 13:39 13:39 WBC 13.0 H (3.8-10.6) k/uL Plt Count (150-450) k/uL Neutrophils # 9.6 H (1.3-7.7) k/uL D-Dimer 7.28 H (<0.60) mg/L FEU Chloride 112 H (98-107) mmol/L Carbon Dioxide 16 L (22-30) mmol/L BUN 28 H (9-20) mg/dL Glucose 132 H (74-99) mg/dL POC Glucose (mg/dL) (75-99) mg/dL Troponin I (0.000-0.034) ng/mL 07/08/21 07/08/21 07/09/21 Range/Units 13:39 17:59 06:51 WBC 10.7 H (3.8-10.6) k/uL Plt Count 136 L (150-450) k/uL Neutrophils # 7.8 H (1.3-7.7) k/uL D-Dimer (<0.60) mg/L FEU Chloride (98-107) mmol/L Carbon Dioxide (22-30) mmol/L BUN (9-20) mg/dL Glucose (74-99) mg/dL POC Glucose (mg/dL) 119 H (75-99) mg/dL Troponin I 0.054 H* (0.000-0.034) ng/mL 07/09/21 Range/Units 06:51 WBC (3.8-10.6) k/uL Plt Count (150-450) k/uL Neutrophils # (1.3-7.7) k/uL D-Dimer (<0.60) mg/L FEU Chloride 111 H (98-107) mmol/L Carbon Dioxide 21 L (22-30) mmol/L BUN 26 H (9-20) mg/dL Glucose 125 H (74-99) mg/dL POC Glucose (mg/dL) (75-99) mg/dL Troponin I (0.000-0.034) ng/mL Assessment and Plan Assessment: 1. Submassive pulmonary embolism status post EKOS 2. Plan: 1. Discontinue EKOS catheter 2. Patient to lie supine 2 hours, then advance activity as tolerated 3. Start patient on Eliquis 10 mg BID 4. Patient is cleared by vascular surgery to be discharged once otherwise medically cleared, prescription sent for Eliquis to outpatient pharmacy The impression and plan of care has been dictated as directed. I performed a history and examination of this patient, discussed the same with the dictator. I agree with the dictator's note ,documented as a scribe. Any additional findings or plans will be noted.
--- NOTE | 2021-07-09 11:05 | ECHOF ---
Referral Reason:SOB MEASUREMENTS -------- HEIGHT: 180.3 cm WEIGHT: 113.4 kg BP: RVIDd: 4.8 cm (< 3.3) IVSd: 1.4 cm (0.6 - 1.1) LVIDd: 4.1 cm (3.9 - 5.3) LVPWd: 1.5 cm (0.6 - 1.1) IVSs: 2.0 cm LVIDs: 2.2 cm LVPWs: 1.7 cm Ao Diam: 3.8 cm (2.0 - 3.7) AV Cusp: 2.7 cm (1.5 - 2.6) LA Diam: 3.6 cm (2.7 - 3.8) MV EXCURSION: 20.607 mm (> 18.000) MV EF SLOPE: 187 mm/s (70 - 150) MV E Peter: 0.68 m/s MV DecT: 327 ms MV A Peter: 0.43 m/s MV E/A Ratio: 1.58 RAP: 5.00 mmHg RVSP: 30.53 mmHg TAPSE: 24.82 mm FINDINGS -------- This was a technically difficult study with suboptimal views. The left ventricular size is normal. There is moderate concentric left ventricular hypertrophy. O verall left ventricular systolic function is low-normal with, an EF between 50 - 55 %. There is par adoxical/dysynergic septal motion consistent with right ventricular volume overload and/or elevated r ight ventricular end-diastolic pressure. The right ventricle is severely enlarged. The left atrial size is normal. The right atrial size is normal. Lumason used The aortic valve is trileaflet and appears structurally normal. The mitral valve is normal. There is trace mitral regurgitation. The tricuspid valve appears structurally normal. Mild tricuspid regurgitation present. Right vent ricular systolic pressure is normal at < 35 mmHg. The pulmonic valve was not well visualized. There is a 0.8cm x 1.0cm mobile echodensity which appears approximately 4.5cm in length emenating fro m the RV apex. May represent thrombus vs less likely moderator band given extension towards RVOT. C linical correlation recommended. The aortic root size is normal. IVC Not well visulized. There is no pericardial effusion. CONCLUSIONS -------- 1. The left ventricular size is normal. 2. There is moderate concentric left ventricular hypertrophy. 3. Overall left ventricular systolic function is low-normal with, an EF between 50 - 55 %. 4. There is paradoxical/dysynergic septal motion consistent with right ventricular volume overload an d/or elevated right ventricular end-diastolic pressure. 5. The right ventricle is severely enlarged. 6. There is trace mitral regurgitation. 7. Mild tricuspid regurgitation present. 8. There is a 0.8cm x 1.0cm mobile echodensity which appears approximately 4.5cm in length emenating from the RV apex. May represent thrombus vs less likely moderator band given extension towards RVOT. Clinical correlation recommended. 9. There is no pericardial effusion. GEOLOGICAL TECHNICIAN: Anisha Floyd RDCS
[2021-07-09] MEDS: HEPARIN SOD,PORK IN 0.45% NACL 25,000 UNIT in 0.45% NACL 1 250ML.BAG IV SCH (11:46)
[2021-07-09] MEDS: SODIUM CHLORIDE 0.9% 1,000 ML IV SCH ×2 (13:54)
[2021-07-09 16:47] VITALS: BP 109/70; PULSE 58; RESP 15; TEMP 98.3
--- NOTE | 2021-07-09 17:18 | P.DS ---
Providers Date of admission: 07/08/21 15:31 Attending physician: Essence Sun Consults: 07/08/21 15:31 Consult Physician Stat Consulting Provider: Jamar Obregon Consult Reason/Comments: PE Do you want consulting provider notified?: Already Contacted Consult Physician Stat Consulting Provider: Ajay Jimenez Consult Reason/Comments: Massive PE, ? ECOS Do you want consulting provider notified?: Already Contacted 07/08/21 17:58 Consult Physician Routine Consulting Provider: Jamar Obregon Consult Reason/Comments: Post PE Care Do you want consulting provider notified?: Yes Primary care physician: Norma Price Hospital Course: Final diagnoses -Elevated troponin: Secondary to pulmonary embolism -Nonanion gap metabolic acidosis secondary to hyperchloremia, improving -Leukocytosis: Reactive secondary to pulmonary embolism, improving Submassive pulmonary embolism, acute bilateral, status post EKOS, pt is discharged on eliquis VTE starter pack -Acute right lower extremity DVT, on eliquis Hypertension, continue with home medication Discharge disposition Patient is discharged home with self-care. He was found to have an acute PE with evidence of right heart strain, acute right lower extremity DVT this admission. Echocardiogram revealed an EF of 50-55%. Patient is status post EKOS, Patient will be discharged home on eliquis VTE starter pack. Patient is to follow-up with pulmonary services, vascular services, PCP. Hospital course This is a pleasant 46-year-old male patient who follows with Dr. Patrick as his primary care provider. Patient has a past medical history of hypertension, he is a nonsmoker.There are noted no other significant medical problems. Patient presented to his PCP today with complaints of chest discomfort and shortness of breath. He was found to have O2 saturation of 80% and was referred to the emergency room. His symptoms started about 4 days ago and got progressively worse which is why he sought treatment in the [facility]. Patient's d-dimer was found to be 7.28, proBNP 3960. Covid was negative. Chest x-ray revealed no acute pulmonary process. CT angiography revealed a large burn acute bilateral pulmonary embolism involving the right and left mainstream branches extending into the second and distal branches. Correlate for right ventricular strain. There is some small focal ground glass C the left upper lobe medial represent an area of suspected pulmonary infarction. She was maintaining oxygen saturation 90% on room air in the [facility], he was initiated on a high intensity heparin drip. There is a suspicion for provoked PE due to patient's sedentary lifestyle. 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 Patient was evaluated in the ICU status post EKOS. He had EKOs catheters placed into the right and left pulmonary arteries. Initiated TPA and tolerated well. Patient was discontinued on heparin drip, and initiated on eliquis. Patient had a Doppler that was positive for right lower extremity DVT. Patient has an echocardiogram that revealed an EF of 50-55% with moderate concentric left ventricular hypertrophy. There is paradoxical, distant ALLERGIC septal motion consistent with right ventricular volume overload and/or elevated right ventricular end-diastolic pressure. In addition there was a 0.8 cm x 1.0 cm mobile echodensity which appears approximately 4.5 cm in length emanating from the RV apex may represent thrombus versus less likely moderator band given extension towards RVOT. There is no pericardial effusion. Patient has been afebrile, sinus bradycardia, 95% room air, blood pressure 110/70. 07/09/2021 Patient is evaluated in the ICU, he is currently on bed rest until this evening. Patient is maintaining oxygen saturation on room air 95%. Patient will be discharged home on eliquis. Patient will follow closely with vascular services, pulmonary services. Patient denies any chest pain, cough, shortness of breath. He is tolerating a diet. Per RN at bedside, patient developed a small hematoma, manual pressure was held and was reducible. The patient is hemodynamically stable, no signs of further complication, able to ambulate on room air without dyspnea, patient will be discharged home and follow-up with providers. Patient's lungs are clear bilateral anterior. S1 and S2 regular rate and rhythm. Bilateral +2 dorsalis pedis pulses. Patient is awake alert and oriented 3, appropriate. Please see medication reconciliation for a list of current medications. Thank you for allowing us to participate in the care of this patient. Patient Condition at Discharge: Fair Plan - Discharge Summary Discharge Rx Participant: No New Discharge Prescriptions: New Apixaban [Eliquis Starter Pack (for VTE)] 0 mg PO DIRECTED 30 Days #1 each Acetaminophen Tab [Tylenol] 650 mg PO Q4HR PRN tab PRN Reason: Fever And/Or Mild Pain Continue Lisinopril [Prinivil] 10 mg PO DAILY Atenolol [Tenormin] 100 mg PO DAILY Aspirin EC [Ecotrin] 650 mg PO QID PRN PRN Reason: Headache Discharge Medication List Aspirin EC [Ecotrin] 650 mg PO QID PRN 07/08/21 [History] Atenolol [Tenormin] 100 mg PO DAILY 07/08/21 [History] Lisinopril [Prinivil] 10 mg PO DAILY 07/08/21 [History] Acetaminophen Tab [Tylenol] 650 mg PO Q4HR PRN tab 07/09/21 [Rx] Apixaban [Eliquis Starter Pack (for VTE)] 0 mg PO DIRECTED 30 Days #1 each 07/09/21 [Rx] Follow up Appointment(s)/Referral(s): Ajay Jimenez DO [Doctor of Osteopathic Medicine] - 1 Week (Please call and make appointment on Monday when the office is open.) Norma Price DO [Primary Care Provider] - 07/13/21 10:40 am Jamar Obregon DO [Doctor of Osteopathic Medicine] - 08/06/21 9:45 am None,Stated [REFERRING] - 1-2 days Patient Instructions/Handouts: Pulmonary Embolism (DC) Activity/Diet/Wound Care/Special Instructions: Patient needs to follow up with PCP, Vascular, Pulmonary Discharge Disposition: HOME SELF-CARE
[2021-07-10] MEDS ORDERED: PANTOPRAZOLE 40 MG TABLET PO SCH (07:30)
== END 2021-07-09 18:13 | disposition home or self-care (01) | DRG 166 ==
LOC: EC 13:15 → 2SICU 15:31
PROVIDERS: ADMIT Internal Medicine; ATTEND Internal Medicine
PROC: 02FR3Z0 Fragmentation of Left Pulmonary Artery, Percutaneous Approach, Ultrasonic (ICD-10-PCS; 2021-07-08)
PROC: 3E03317 Introduction of Other Thrombolytic into Peripheral Vein, Percutaneous Approach (ICD-10-PCS; 2021-07-08)
PROC: 02FQ3Z0 Fragmentation of Right Pulmonary Artery, Percutaneous Approach, Ultrasonic (ICD-10-PCS; principal; 2021-07-08 11:55)
DX: I26.09 Other pulmonary embolism with acute cor pulmonale (principal); J96.01 Acute respiratory failure with hypoxia; E87.2 Acidosis; I82.401 Acute embolism and thrombosis of unspecified deep veins of right lower extremity; Z20.822 Contact with and (suspected) exposure to COVID-19; Z79.899 Other long term (current) drug therapy; E78.5 Hyperlipidemia, unspecified; D72.829 Elevated white blood cell count, unspecified; I11.9 Hypertensive heart disease without heart failure; E87.8 Other disorders of electrolyte and fluid balance, not elsewhere classified
CPT/HCPCS: 36415; 37195; 37211; 71046; 71275; 80048; 80053; 83605; 83735; 83880; 84484; 85025; 85379; 85384; 85610; 85730; 87040; 87635; 93005; 93306; 93970; 94640; 99285

== ENCOUNTER → 2021-08-18 | Outpatient (CLI) | payer BC ==
--- NOTE | 2021-08-20 07:33 | CT ---
EXAMINATION TYPE: CT angio chest DATE OF EXAM: 08/18/2021 4:54 PM COMPARISON: CTA chest July 08, 2021 HISTORY: f/u PE CT DLP: 562 mGycm Automated exposure control for dose reduction was used. CONTRAST: CTA scan of the thorax is performed with IV Contrast, patient injected with 77cc mL of Isovue 370, pu lmonary embolism protocol. MIP images are created and reviewed. FINDINGS: LUNGS: Interval resolution of vague groundglass opacity medial left upper lobe. Lungs are currently c lear bilaterally. There is no pleural effusion or pneumothorax seen. The tracheobronchial tree is patent. MEDIASTINUM: There is persistent but improved clot burden or known bilateral pulmonary embolism. Res idual embolism at lingular and left lower lobe bifurcation axial image 53 is less prominent than prio r study extending distally. Some additional left lower lobe segmental subsegmental pulmonary embolism remains present but less prominent. Clot in the distal right pulmonary artery shows some improvement but some persistent clot at the bifurcation into right middle and lower lobes. Additional clot in th e right lower lobe segmental and subsegmental branches also shows improvement. Significantly improved or resolved upper lobe emboli are noted bilaterally. There are no new greater than 1 cm hilar or med iastinal lymph nodes. No pericardial effusion is seen. Persistent cardiomegaly. Improved right vent ricular dilatation. OTHER: Moderate multilevel spurring in the spine. IMPRESSION: PERSISTENT BUT IMPROVED BILATERAL PULMONARY EMBOLI WITH IMPROVED RIGHT VENTRICULAR DILATATION. LUNGS ARE CURRENTLY CLEAR.
== END | disposition home or self-care (01) ==
LOC: RADCTMAIN 16:10
PROVIDERS: ATTEND Internal Medicine Critical Care Medicine
DX: I51.7 Cardiomegaly (principal); I26.99 Other pulmonary embolism without acute cor pulmonale
CPT/HCPCS: 71275; Q9967

== ENCOUNTER → 2022-01-19 | Outpatient (CLI) | payer BC ==
--- NOTE | 2022-01-19 21:01 | CT ---
EXAMINATION TYPE: CT angio chest DATE OF EXAM: 01/19/2022 2:58 PM COMPARISON: CT dated 08/18/2021 HISTORY: f/u shadow on lung CT DLP: 660.6 mGycm Automated exposure control for dose reduction was used. CONTRAST: CTA scan of the thorax is performed with IV Contrast, patient injected with 100 mL of Isovue 370, pul monary embolism protocol. MIP images were performed and reviewed. FINDINGS: Interval regression of the previously seen bilateral pulmonary emboli with residual nonocclusive hr receptionist fatmata emboli are still seen at the distal aspect of the right main pulmonary artery, segmental and subs egmental branches of the middle lobe and right lower lobe arteries with tiny nonocclusive chronic emb olus in the right upper lobe pulmonary artery. Smaller chronic emboli are still appreciated in the left upper lobe, lingular and left lower lobe pul monary arteries, regressed in size compared to the previous CT scan. No definite occlusive emboli ivonne ntified today. No residual emboli within the pulmonary trunk or the proximal portions of the main pul monary arteries. The pulmonary trunk measures 2.9 cm. No gross cardiomegaly. Coronary arterial atherosclerotic calcifi cations. No pathologically enlarged lymph nodes in the chest. Unremarkable lungs. No pleural or peric ardial effusion. Patent central airways. Fatty infiltration of the pancreas. Degenerative changes of the thoracic spine. IMPRESSION: Residual bilateral nonocclusive chronic pulmonary emboli demonstrating significant interval regressio n as compared to the previous CT scan as detailed above.
== END | disposition home or self-care (01) ==
LOC: RADCTMAIN 14:15
PROVIDERS: ATTEND Internal Medicine Critical Care Medicine
DX: I27.82 Chronic pulmonary embolism (principal)
CPT/HCPCS: 71275; Q9967

== ENCOUNTER → 2022-02-08 | Outpatient (CLI) | payer BC ==
[2022-02-09 00:11] LABS: INR 0.97 (0.90-1.11); Prothrombin Time 10.7 sec (9.9-11.9)
[2022-02-09 05:29] LABS: Cardiolipin Ab IgG Interp NEGATIVE (NEGATIVE); Cardiolipin Ab IgM Interp NEGATIVE (NEGATIVE); Cardiolipin IgA Antibody <2.0 U/mL; Cardiolipin IgM Antibody <1.5 U/mL
[2022-02-09 12:01] LABS: APTT 52 Sec(s) (<43); APTT 1:1 Mix 43 Sec(s) (<43); Dilute Russell Viper Venom 44 Sec(s) (<44)
== END | disposition home or self-care (01) ==
LOC: LABWHC1 15:03
PROVIDERS: ATTEND Internal Medicine Critical Care Medicine
DX: Z86.711 Personal history of pulmonary embolism (principal)
CPT/HCPCS: 36415; 81240; 81241; 81291; 85300; 85303; 85306; 85610; 85613; 85730; 86147

== ENCOUNTER → 2022-08-16 | Outpatient (CLI) | payer BC ==
--- NOTE | 2022-08-16 10:26 | CT ---
EXAMINATION TYPE: CT angio chest CT DLP: 532 mGycm, Automated exposure control for dose reduction was used. DATE OF EXAM: 08/16/2022 10:12 AM COMPARISON: CTA chest 01/19/2022, 08/18/2021. CLINICAL INDICATION:Male, 47 years old with history of I26.99 Other pulmonary embolism without acute cor; pe TECHNIQUE/CONTRAST: CTA scan of the thorax is performed with IV Contrast, patient injected with 100 mL of Isovue 370, pul monary embolism protocol. MIP images are created and reviewed. FINDINGS: Pulmonary Artery: Slight interval regression of previously seen bilateral pulmonary emboli with resid ual nonocclusive chronic emboli seen at the distal aspect of the right main pulmonary artery, right m iddle and lower lobe segmental and subsegmental branches. Chronic nonocclusive emboli are redemonstra leonor within the segmental branches of the lingula. The pulmonary artery is of normal size. Lungs/Pleura: No evidence of focal consolidation, pleural effusion or pneumothorax. No suspicious pul monary nodules or masses. Airway: Large airways are patent. Heart: Heart is within normal limits for size. No pericardial effusion. Coronary arterial calcificati ons. Vasculature: No evidence of aortic aneurysm. Mediastinum: No gross evidence of adenopathy. Musculoskeletal: No acute osseous abnormalities. Mild degenerative changes of the visualized spine. Soft Tissues: Unremarkable. Lower neck: No significant findings. Upper Abdomen: Diffuse low-attenuation to the liver parenchyma.. IMPRESSION: Slight interval regression of nonocclusive chronic pulmonary emboli compared to prior examination as described above.
== END | disposition home or self-care (01) ==
LOC: RADCTMAIN 09:40
PROVIDERS: ATTEND Internal Medicine Critical Care Medicine
DX: I27.82 Chronic pulmonary embolism (principal)
CPT/HCPCS: 71275; Q9967

== ENCOUNTER 2024-12-13 08:30 | Day surgery (SDC) | payer OTHER, BC ==
[2024-12-11 08:56] VITALS: BMI 31.5
[2024-12-13 08:51] VITALS: TEMP 97.8
[2024-12-13] MEDS: IV FLUID CONTINUATION 1,000 ML IV ONE ×2 (09:03→09:14)
[2024-12-13] MEDS: LACTATED RINGERS 1,000 ML IV SCH (09:05)
[2024-12-13 09:07] LABS: Glucose,Whole Blood 109 mg/dL (70-110)
[2024-12-13] MEDS ORDERED: PROPOFOL 10 MG/ML 20 ML VIAL IV ONE (09:19)
--- NOTE | 2024-12-13 09:33 | P.PCN ---
Date of Procedure: 12/13/24 Procedure(s) Performed: BRIEF HISTORY: Patient is a 49-year-old pleasant white male scheduled for an elective colonoscopy as a part of screening for colon cancer. PROCEDURE PERFORMED: Colonoscopy with cold snare polypectomy. PREOPERATIVE DIAGNOSIS: Screening for colon cancer. IV sedation per Anesthesia. PROCEDURE: After informed consent was obtained, the patient, was brought into the endoscopy unit. IV sedation was administered by Anesthesia under continuous monitoring. Digital rectal examination was normal. Initially the Olympus CF-160 flexible video colonoscope was then inserted in the rectum, gradually advanced into the cecum without any difficulty. Careful examination was performed as the scope was gradually being withdrawn. Ileocecal valve and the appendiceal orifice were visualized and appeared normal. Prep was excellent. Mucosa of the cecum, ascending colon, transverse colon, descending colon, appeared normal. In the sigmoid colon there was a 5 mm polyp that was removed by cold snare polypectomy. Sigmoid colon, and rectum appeared normal. Retroflexion was performed in the r ectum and no lesions were seen. The patient tolerated the procedure well. IMPRESSION: 5 mm sigmoid colon polyp status post cold snare polypectomy Rest of the colon appeared normal RECOMMENDATIONS: Findings of this examination were discussed with the patient as well as his family. He was advised to follow the biopsy results. If the biopsy was adenoma he can have repeat colonoscopy in 5 years.
[2024-12-13 09:38] VITALS: RESP 16
[2024-12-13 09:53] VITALS: BP 113/71; PULSE 63
== END 2024-12-13 10:18 | disposition home or self-care (01) ==
LOC: ORWHC2ENDO 08:30
PROVIDERS: ATTEND Internal Medicine Gastroenterology
DX: Z12.11 Encounter for screening for malignant neoplasm of colon (principal); D12.5 Benign neoplasm of sigmoid colon; I10 Essential (primary) hypertension; E78.5 Hyperlipidemia, unspecified; G47.33 Obstructive sleep apnea (adult) (pediatric); E11.9 Type 2 diabetes mellitus without complications; Z86.711 Personal history of pulmonary embolism; Z99.89 Dependence on other enabling machines and devices; Z79.01 Long term (current) use of anticoagulants; Z79.84 Long term (current) use of oral hypoglycemic drugs; Z79.899 Other long term (current) drug therapy
CPT/HCPCS: 88305; 45385; J2704